=== PATIENT | female | born 1990 | race Caucasian/White ===

== ENCOUNTER 2017-12-14 22:08 | Emergency (ER) | payer MEDICAID, SELFPAY ==
[2017-12-14 22:09] VITALS: BP 123/67; PULSE 68; RESP 14; TEMP 36.6; O2SAT 98; BMI 26.2
--- NOTE | 2017-12-14 22:15 | RAD_ITS ---
STUDY: X-RAY - RIGHT RADIUS AND ULNA REASON FOR EXAM: Female, 26 years old. Right wrist pain related to smacking hand on a piece of furniture. TECHNIQUE: 2 view(s) of the forearm. COMPARISON: None. FINDINGS: There is no demonstrated soft tissue swelling. Normal visualized radius. Normal visualized ulna. There is no acute fracture, dislocation or destructive osseous pathology. The wrist and elbow appear intact. RAD/Forearm 2 Views IMPRESSION: Normal x-ray examination of the radius and ulna. Electronically Signed: Russell Duckworth DO at 22:32 EDT Tel [phone], Service support ,
--- NOTE | 2017-12-14 22:15 | NURSING ---
attempted to place pt in c-collar. no adult c-collars aviable. 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
--- NOTE | 2017-12-14 23:11 | ED.DCSUM_ITS ---
History of Present Illness Chief Complaint: Upper Extremity Injury Informant: Patient Onset: Today Context: Sudden Onset - blunt injury Timing: Continuous Quality: sore Location: volar right wrist Current Severity: Moderate Maximum Severity: Moderate Worsened by: moving Relieved by: remaining still Associated Symptoms: none. no other injury. no neuro sx. Narrative: Was using sandpaper in her right hand to stand down the back of a bench at work, her hand inadvertently hit the arm of the bench versus the volar aspect of her right wrist, where she is having pain. She is adamant that she does not want to fill out worker's comp paperwork. Past Medical History - Allergies and Home Meds Allergies/Adverse Reactions: Allergies amoxicillin Allergy (Verified 12/14/17 22:09) Rash Penicillins [PCN] Allergy (Verified 12/14/17 22:09) Rash Primary Care Physician: Jacques Doctor,Out of [Primary Care Provider] - As Needed Past Medical History: None Smoking Status: Current every day smoker Review of Systems Musculoskeletal: Reports: Swelling, Extremity Pain Neurological: Denies: Weakness, Parasthesia, Numbness Physical Exam Vital Signs/Narrative: Vital Signs Temp Pulse Resp BP Pulse Ox 12/14/17 22:09 98 F 68 14 123/67 H 98 Inital Vital Signs reviewed: Yes General: Well nourished, Well developed, - - nad Head: Normocephalic, Atraumatic Extremities: No edema, Tenderness - Volar distal right forearm/wrist and soft tissues. Minimal distal ulnar tenderness. No deformities. Full range of motion all fingers, all FDS/FDP tendons intact, full range of motion of the thumb including opposition. Skin: Normal color, No rash, No Trauma Neurological: Alert, Oriented x3, Cranial nerves II-XII grossly intact, Normal Strength, Normal Sensation, Normal Gait Psychological: Normal affect Diagnostic/Tx/Re-eval Clinical Impression(s) from Imaging Studies Forearm X-Ray 12/14/17 22:15 IMPRESSION: Normal x-ray examination of the radius and ulna. Electronically Signed: Russell Duckworth DO at 22:32 EDT Tel [phone], Service support , - Medical Decision Making X-ray of the forearm including the wrist are unremarkable. She is nontender in the snuffbox and had no injury there. She is given a cockup wrist splint for comfort as well as ibuprofen and an ice pack, with instructions for supportive care. ED Disposition - Plan for ED Patient: Disposition: Home or Assisted Living Chief Complaint: Upper Extremity Injury Diagnosis: Contusion of right wrist, initial encounter Instructions: ED Contusion Upper Ext Referrals: [facility] Doctor,Out of [Primary Care Provider] - As Needed
[2017-12-14] MEDS: Ibuprofen 600 MG Tablet PO (23:15)
== END 2017-12-14 23:21 | disposition home or self-care (01) ==
LOC: ED 23:20
PROVIDERS: Emergency Provider Emergency Medicine; Family Provider Orthopaedic Surgery; PCP Orthopaedic Surgery
DX: S60.211A Contusion of right wrist, initial encounter (principal); W22.03XA Walked into furniture, initial encounter; Y93.89 Activity, other specified; Y92.89 Other specified places as the place of occurrence of the external cause; Y99.0 Civilian activity done for income or pay; F17.200 Nicotine dependence, unspecified, uncomplicated
CPT/HCPCS: 73090; 99283

== ENCOUNTER 2021-10-29 10:04 | Day surgery (SDC) | payer MEDICAID, SELFPAY ==
[2021-10-29] VITALS (8 sets, daily range): BP systolic 97–117; BP diastolic 57–83; PULSE 55–99; RESP 16; TEMP 36.1–36.7; O2SAT 93–97; BMI 28.2
[2021-10-29] MEDS: Lactated Ringers 1,000 ML 15 ML IV (10:15)
--- NOTE | 2021-10-29 10:30 | RAD_ITS ---
STUDY: X-RAY - LEFT HAND REASON FOR EXAM: Female, 30 years old. ORIF 3RD METACARPAL TECHNIQUE: 2 view(s) of the hand. COMPARISON: None. FINDINGS: Intraoperative imaging provided for ORIF of the third metacarpal fracture utilizing screw and plate fixation device. RAD/Hand 2 Views IMPRESSION: Intraoperative imaging provided for ORIF of the third metacarpal fracture utilizing screw and plate fixation device Electronically Signed: Costa Daigle MD at 12:42 EDT ,
[2021-10-29] MEDS: Cefazolin 1 GM/50 ML BAG IV (11:24)
[2021-10-29] MEDS: Bupivacaine 0.25% 30 ML Vial (12:16)
--- NOTE | 2021-10-29 12:36 | DCINST_ITS ---
Discharge Instructions Follow Up Care Test Results: Test results from this visit will be discussed in further detail at your follow- up appointment, if applicable. Discharge Plan Admission Primary Reason for Your Visit: Left third metacarpal fixation Attending Provider: Wilian Martin Primary Care Provider: Param Bashir Instructions Additional Instructions / Restrictions: See preprinted instructions from your surgeon's office. Discharge Orders/Prescriptions Prescriptions: No Action acetaminophen [Tylenol] 325 mg Tablet 650 mg PO Q6H PRN (Reason: Pain) sumatriptan succinate [Imitrex] 100 mg Tablet 100 mg PO Q2H PRN (Reason: MIGRAINES) Rx Instructions: do not exceed 2 doses per 24 hrs dextroamphetamine sulfate [Dexedrine] 10 mg Tablet 15 mg PO DAILY topiramate [Topamax] 100 mg Tablet 100 mg PO DAILY Referrals / Follow Up: Param Bashir MD [Primary Care Provider] - Wilian Martin DO [Med Staff - Active Staff] - 11/06/21 Disposition Disposition (needs filled in before D/C Order can be placed): Home, Self Care
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
[2021-10-29] MEDS: oxyCODONE 5 MG Tablet 10 MG PO (14:16)
== END 2021-10-29 15:21 | disposition home or self-care (01) ==
LOC: SDC 10:10 → AC 10:10
PROVIDERS: PCP Orthopaedic Surgery; Referring Provider Student in an Organized Health Care Education/Training Program; Visit Provider Student in an Organized Health Care Education/Training Program
PROC: (CPT 26615; principal; 2021-10-29 11:15)
DX: S62.333A Displaced fracture of neck of third metacarpal bone, left hand, initial encounter for closed fracture (principal); V99.XXXA Unspecified transport accident, initial encounter; Y93.9 Activity, unspecified; Y92.9 Unspecified place or not applicable; M19.90 Unspecified osteoarthritis, unspecified site; Z79.899 Other long term (current) drug therapy; F17.298 Nicotine dependence, other tobacco product, with other nicotine-induced disorders; R03.0 Elevated blood-pressure reading, without diagnosis of hypertension
CPT/HCPCS: 26615; 01830; 73120; 76000; C1713; J7120; J2405